=== PATIENT | male | born 1985 | race Caucasian/White ===

== ENCOUNTER 2019-07-18 10:04 | Day surgery (SDC) | payer OTHER ==
[~2019-07-18] VITALS: Ht 177.8 cm; Wt 102.1 kg
[2019-07-18] MEDS ORDERED: LIDOCAINE 2% 100 MG/5 ML UJET TP ONE (11:45)
[2019-07-18] MEDS ORDERED: fentaNYL 0.05 MG/ML VIAL ONE (11:45)
== END 2019-07-18 12:30 | disposition home or self-care (01) ==
LOC: MDS 10:04 → MMU 10:13 → MDS 12:30
PROVIDERS: ATTEND Internal Medicine Gastroenterology
DX: K62.89 Other specified diseases of anus and rectum (principal); K76.0 Fatty (change of) liver, not elsewhere classified; E66.9 Obesity, unspecified; E78.00 Pure hypercholesterolemia, unspecified; F17.210 Nicotine dependence, cigarettes, uncomplicated; Z68.32 Body mass index [BMI] 32.0-32.9, adult
CPT/HCPCS: 45330; J3010